=== PATIENT | female | born 1975 | race Caucasian/White ===

== ENCOUNTER → 2020-07-22 11:15 | Outpatient (CLI) | payer BC, SELFPAY ==
--- NOTE | ~2020-07-22 | US_ITS ---
EXAMINATION: US pelvic complete w TV EXAM DATE: 07/22/2020 11:47 INDICATION: N93.9 - Abnormal uterine and vaginal bleeding, unspecified. TECHNIQUE: Pelvic transabdominal and transvaginal sonogram was performed. There are multiple graysca le and Doppler images available for interpretation. Comparison is made to prior examination from 2012. FINDINGS: Uterus measures 11.4 x 5.7 x 8.0 cm, with a fibroid measuring 5 cm. Endometrium measuring up to 33 mm in thickness, abnormally thickened but otherwise expected trilaminar echogenicity. There is no free pelvic fluid. Right adnexa: The ovary measures 4.0 x 2.6 x 3.9 cm, with 2 cystic lesions measuring 2.6, 2.4 cm. Ova jayla vascular flow confirmed. Left adnexa: The ovary measures 1.4 x 1.6 x 2.4 cm and is morphologically normal. Ovarian vascular fl ow confirmed. IMPRESSION: 1. Abnormal thickened endometrium with expected trilaminar echogenicity. Could be hyperplasia. Endom etrial cancer not excludable. 2. Couple of right ovarian cystic lesions likely physiologic or hemorrhagic cyst. 3. Consider endometrial histologic correlation or 6 week follow-up pelvic sonogram for these 2 findi ngs. Reviewed, dictated and finalized at location B. 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 Abnormal thickened endometrium with expected trilaminar echogenicity. Could be hyperplasia. Endometrial cancer not excludable. 2. Couple of right ovarian cystic lesions likely physiologic or hemorrhagic cy st. 3. Consider endometrial histologic correlation or 6 week follow-up pelvic sono gram for these 2 findings.
== END ==
PROVIDERS: Visit Provider Obstetrics & Gynecology
DX: N93.9 Abnormal uterine and vaginal bleeding, unspecified (principal); N83.201 Unspecified ovarian cyst, right side
CPT/HCPCS: 76830; 76856

== ENCOUNTER → 2020-09-04 14:52 | Outpatient (CLI) | payer BC, SELFPAY ==
--- NOTE | ~2020-09-04 | MM_ITS ---
EXAMINATION: MM scrn shante implant BI w joselyn HISTORY: Screening mammogram TECHNIQUE: Craniocaudal and mediolateral oblique 3-D tomosynthesis images with implant displacement a nd synthetic 2-D images were generated. Craniocaudal and mediolateral oblique views of the breasts wi thout implant displacement were obtained using full field digital mammography. CAD analysis was submi tted and interpreted. COMPARISON: No prior mammogram is available for comparison at this institution. BREAST PARENCHYMAL COMPOSITION: The breasts are heterogeneously dense, which may obscure small masses . FINDINGS: Status post bilateral augmentation mammoplasty. There is no evidence of suspicious mass, ca lcification, or architectural distortion to suggest malignancy in either breast. There has been no alan spicious interval change. IMPRESSION: 1. No mammographic evidence of malignancy. 2. Recommend routine screening mammography in one year. BI-RADS Category 1: Negative Reviewed, dictated and finalized at location A. 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
== END ==
PROVIDERS: PCP Emergency Medicine; Visit Provider Obstetrics & Gynecology
DX: Z12.31 Encounter for screening mammogram for malignant neoplasm of breast (principal)
CPT/HCPCS: 77063; 77067

== ENCOUNTER → 2020-11-02 00:41 | Outpatient (CLI) | payer BC, SELFPAY ==
[2020-11-02 18:52] LABS: SARS-CoV-2 RNA PCR Negative
== END ==
PROVIDERS: PCP Emergency Medicine; Visit Provider Obstetrics & Gynecology
DX: Z01.812 Encounter for preprocedural laboratory examination (principal); Z20.822 Contact with and (suspected) exposure to COVID-19
CPT/HCPCS: C9803; U0003; U0005

== ENCOUNTER 2020-11-05 14:58 | Outpatient (CLI) | payer BC, SELFPAY ==
--- NOTE | ~2020-11-05 | US_ITS ---
EXAMINATION: US pelvic complete w TV EXAM DATE: 11/05/2020 15:40 INDICATION: N83.201 - Unspecified ovarian cyst, right side. TECHNIQUE: Pelvic transabdominal and transvaginal sonogram was performed. There are multiple graysca le and Doppler images available for interpretation. Comparison is made to prior examination from 06/26. FINDINGS: Uterus measures 10.6 x 5.2 x 6.5 cm, with focal region consistent with left anterior fibro id measuring 4 cm Endometrial stripe measures 11 mm, within normal limits. There is no free pelvic f luid. Right adnexa: The ovary measures 3.8 x 2.6 x 3.0 cm and is morphologically normal, contains the domin ant physiologic follicle measuring up to 2.3 cm. Ovarian vascular flow confirmed. Left adnexa: The ovary measures 3.2 x 2.0 x 2.9 cm and is morphologically normal. Ovarian vascular fl ow confirmed. IMPRESSION: 1. Normalization of both previously seen thickened endometrium and complex right ovarian cystic lesi on. 2. Fibroid. Reviewed, dictated and finalized at location A. IMPRESSION: 1. Normalization of both previously seen thickened endometrium and complex rig ht ovarian cystic lesion. 2. Fibroid.
== END 2020-11-05 14:59 | disposition home or self-care (01) ==
PROVIDERS: PCP Emergency Medicine; Visit Provider Obstetrics & Gynecology
DX: N83.201 Unspecified ovarian cyst, right side (principal); D25.9 Leiomyoma of uterus, unspecified
CPT/HCPCS: 76830; 76856

== ENCOUNTER 2020-11-06 01:52 | Day surgery (SDC) | payer BC, SELFPAY ==
[2020-10-21 13:43] VITALS: BMI 22.1
--- NOTE | 2020-11-06 04:50 | PM.IMHP ---
H&P: HPI History of Present Illness Date/Time: 11/06/20 04:50 Patient with a history of abnormal uterine bleeding with prolonged periods which started end of 2019. Evaluation consist of ultrasound which did not show fibroids. She had some ovarian cyst and follow up ultrasound was done on 11/05 which showed small cyst. Appear benign. She had a normal endometrial biopsy. Normal pap smear. She is not a candidate for combined hormonal regulation due to smoking history. She has been given option of IUD. Continual oral progesterone. Depo Provera and endometrial ablation. She has been counseled regarding risk/benefits of each. She desires endometrial ablation. She has a history of sterilization. She denies pelvic pain. Chief Complaint: Abnormal uterine bleeding. Review of Systems Review of Systems: All systems reviewed & are unremarkable except as noted in HPI and below Cardiovascular: Cardiovascular: Reports no additional cardiovascular complaints, Denies chest pain and Denies dyspnea Respiratory: Respiratory: Reports no additional respiratory complaints and Denies dyspnea Gastrointestinal: Gastrointestinal: Reports abdominal pain, Denies change in bowel habits, Denies diarrhea, Denies nausea and Denies vomiting Genitourinary: Genitourinary: Reports pelvic pain Musculoskeletal: Musculoskeletal: Reports back pain Integumentary/Breasts: Skin/Breast: Reports system reviewed and no additional complaints, except as docu Neurologic: Reports system reviewed and no additional complaints, except as documented PMFSH Past Medical History Medical History Depression History of vaginal delivery x 2 Surgical History Surgical History History of tubal ligation [place] teeth removed Family History Family History Mother Family history of malignant neoplasm of breast in first degree relative Other Family history of malignant neoplasm of male breast Social History Social History Years smoked: 1 Smoking status: Light tobacco smoker Tobacco type: cigarettes Second hand tobacco smoke exposure: No Smoking end date: 07/26/01 Alcohol intake: never Living arrangements: with family Spiritual care concerns: No Meds Home Medications and Allergies Home Medications Medication Instructions Recorded Confirmed Type sertraline 50 mg tablet See Rx Instructions .ROUTE 07/22/20 11/06/20 Rx .COMPLEX #90 tablet cholecalciferol (vitamin D3) 50 See Rx Instructions .ROUTE 10/15/20 11/06/20 Rx mcg (2,000 unit) capsule .COMPLEX #90 cap Allergies Allergy/AdvReac Type Severity Reaction Status Date / Time latex Allergy Mild Rash Verified 11/06/20 08:52 Sulfa (Sulfonamide Allergy Mild rash Verified 11/06/20 08:52 Antibiotics) sulfanilamide Allergy Mild Rash Verified 11/06/20 08:52 Exam Const: Orientation/consciousness: oriented to person and oriented to place HENMT: Head: normal to inspection Eyes: General: appearance normal, both eyes and all related structures Resp: Effort & Inspection: normal respiratory effort Auscultation: clear to auscultation bilaterally Cardio: Rate: regular rate Rhythm: regular rhythm GI: Inspection: normal to inspection GI Palp: No Rebound tenderness present : External Female Exam: normal external appearance Speculum Exam - Vagina: normal appearance of the vagina Speculum Exam - Cervix: normal appearance of the cervix Bimanual exam- vagina & uterus: normal bimanual exam, uterine size normal and non-tender Bimanual Exam- Adnexa, other: no masses and No adnexal tenderness Neuro: General: oriented to person and oriented to place Cognition (Neuro): normal cognition Extrem: General: normal to inspection Psych: Appearance: grossly normal and we
--- NOTE | 2020-11-06 09:02 | P.PNAN_ITS ---
Anes - Initial Pre Proc Eval Procedure: Operation Date: 11/06/20 10:30 Proposed Procedures p Hysteroscopy, Dilation and Curettage with Leslee Endometrial Ablation, Possible Myosure - Lazaro Petersen MD Date/Time: 11/06/20 09:02 Surgeon: Lazaro Petersen MD Pre Op Diagnosis: menorrhaghia Patient Data Age: 45 Gender: F Height: 5 ft 9 in Weight: 68.1 kg Allergies Allergy/AdvReac Type Severity Reaction Status Date / Time latex Allergy Mild Rash Verified 11/06/20 08:52 Sulfa (Sulfonamide Allergy Mild rash Verified 11/06/20 08:52 Antibiotics) sulfanilamide Allergy Mild Rash Verified 11/06/20 08:52 Home Medications Medication Instructions Recorded Confirmed Type sertraline 50 mg tablet See Rx Instructions .ROUTE 07/22/20 11/06/20 Rx .COMPLEX #90 tablet cholecalciferol (vitamin D3) 50 See Rx Instructions .ROUTE 10/15/20 11/06/20 Rx mcg (2,000 unit) capsule .COMPLEX #90 cap Patient hx anesthesia problems: post op nausea/vomiting Family hx anesthesia problems: none PMFSH Past Medical History Medical History Depression History of vaginal delivery x 2 Surgical History Surgical History History of tubal ligation [place] teeth removed Family History Family History Mother Family history of malignant neoplasm of breast in first degree relative Other Family history of malignant neoplasm of male breast Social History Social History Years smoked: 1 Smoking status: Light tobacco smoker Tobacco type: cigarettes Second hand tobacco smoke exposure: No Smoking end date: 07/26/01 Alcohol intake: never Living arrangements: with family Spiritual care concerns: No Anes - Eval Final PreProcedure Day of Procedure 11/06/20 09:02 Patient weight: normal Heart: regular rate and rhythm Lungs: clear to auscultation Airway: Mallampati scale class II Neurological: alert and oriented Last oral intake: >/= 8 hours ASA classification: II Emergent: no Anesthetic plan: proceed Anesthesia type and monitoring: general GIVS and standard monitoring Informed Consent: The patient's anesthetic plan and its attendant risks and benefits were discussed with the patient/family/POA. Questions were solicited and answers provided to the satisfaction of the patient/family/POA.
[2020-11-06] MEDS: LACTATED RINGERS 1,000 ML 30 ML IV CONT (09:09)
[2020-11-06] MEDS: SCOPOLAMINE 1.5 MG PATCH TRANSDERM (09:10)
[2020-11-06] MEDS: ACETAMINOPHEN 500 MG TABLET 1000 MG PO (09:10)
[2020-11-06 09:12] VITALS: BP 157/67; PULSE 83; RESP 16; TEMP 36.4; O2SAT 99
--- NOTE | 2020-11-06 10:08 | SUR.PREOP ---
Discussed 30 minute delay with patient and family.
--- NOTE | 2020-11-06 11:17 | SUR.PREOP ---
Discussed continued delay. No needs at present.
--- NOTE | 2020-11-06 11:25 | WPDHPUPDATE1 ---
History and Physical Update Update Date/Time: 11/06/20 11:25 History and Physical has been reviewed, including an updated exam of the patient. There are NO changes in the patient's condition. Risks, benefits, and alternatives have been discussed and questions answered. Patient agrees to proceed with procedure.
[2020-11-06] MEDS: ceFAZolin 2 GM/D5W 50 ML 2 GM/50 ML BAG IVPB (11:48)
--- NOTE | 2020-11-06 12:14 | PM.OP ---
Procedure Note - Brief Procedure Note - Brief Date of procedure: 11/06/20 Pre-op diagnosis: menorrhaghia Post-op diagnosis: same Procedure performed: Diagnostic hysteroscopy and Leslee endometrial ablation. Anesthesia: MAC and local Surgeon: Lazaro Petersen MD Estimated blood loss (mL): 5 Drains: No Packing: No Pathology: none sent Complications: No immediate complications Condition: stable Disposition: same day Findings: Uterus sound to 10 cm, cervical length 4.5cm, uterine cavity length 5.5 cm, normal uterine cavity.
[2020-11-06 12:20] VITALS: BP 102/42; PULSE 50; RESP 12; O2SAT 97
[2020-11-06 12:50] VITALS: BP 102/73; PULSE 41; RESP 12
--- NOTE | 2020-11-07 07:33 | PM.PROC ---
Procedure Note - Detailed Pre-op diagnosis: menorrhaghia Abnormal uterine bleeding with menorrhagia Post-op diagnosis: same Procedure performed: Hysteroscopic endometrial ablation with Leslee Description of procedure: After informed consent was obtained patient was taken to the operating room and adequate general endotracheal anesthesia was administered Attention was turned to the vagina. Speculum was inserted. Single-tooth tenaculum placed on the anterior lip of the cervix. The uterus was sounded to 10cm. The cervix was dilated to an 8 Izaguirre dilator. The hysteroscope was inserted into the cavity. The findings were a normal uterine cavity. The hysteroscope was removed. The Leslee ablation instrument was inserted into the cavity. Cavity assessment was performed and noted to be intact. The ablation was enabled. After 120 seconds the Leslee stopped. The ablation instrument was removed. The hysteroscope was inserted and there was noted to be good eschar with the cavity. The hysteroscope was removed the single-tooth tenaculum was removed hemostasis was noted at the tenaculum site. Sponge count correct. The patient was taken to recovery room in stable condition. Anesthesia: GETA Surgeon: Lazaro Petersen MD Date of procedure 11/06/20 Estimated blood loss (mL): 5 Drains: No Packing: No Pathology: none sent Complications: No immediate complications Condition: stable Disposition: PACU Findings: Uterus sound to 10cm, cervical length 4.5 cm, uterine length 5.5cm, uterine cavity normal, no lesions.
== END 2020-11-06 13:15 | disposition home or self-care (01) ==
PROVIDERS: PCP Emergency Medicine; Visit Provider Obstetrics & Gynecology
PROC: 0U5B8ZZ Destruction of Endometrium, Via Natural or Artificial Opening Endoscopic (ICD-10-PCS; CPT 58563; principal; 2020-11-06 10:30)
DX: N92.0 Excessive and frequent menstruation with regular cycle (principal); F32.9 Major depressive disorder, single episode, unspecified; F17.210 Nicotine dependence, cigarettes, uncomplicated
CPT/HCPCS: 58563; A9270; J0690; J2250; J2704; J3010; J7030; J7120

== ENCOUNTER → 2021-10-09 16:23 | Outpatient (CLI) | payer BC, SELFPAY ==
--- NOTE | ~2021-10-09 | MM_ITS ---
EXAMINATION: MM scrn shante implant BI w joselyn HISTORY: Screening mammogram, family history of breast cancer in her mother. TECHNIQUE: Craniocaudal and mediolateral oblique 3-D tomosynthesis images with implant displacement a nd synthetic 2-D images were generated. Craniocaudal and mediolateral oblique views of the breasts wi thout implant displacement were obtained using full field digital mammography. CAD analysis was submi tted and interpreted. COMPARISON: 09/04/2020 BREAST PARENCHYMAL COMPOSITION: The breasts are heterogeneously dense, which may obscure small masses . FINDINGS: There is no evidence of suspicious mass, calcification, or architectural distortion to sugg est malignancy in either breast. There has been no suspicious interval change. IMPRESSION: 1. No mammographic evidence of malignancy. 2. Recommend routine screening mammography in one year. BI-RADS Category 1: Negative Reviewed, dictated and finalized at location A.
== END ==
PROVIDERS: Visit Provider Obstetrics & Gynecology
DX: Z12.31 Encounter for screening mammogram for malignant neoplasm of breast (principal)
CPT/HCPCS: 77063; 77067

== ENCOUNTER 2022-09-22 01:18 | Day surgery (SDC) | payer BC, SELFPAY ==
[2022-09-07 10:39] VITALS: BMI 22.8
--- NOTE | 2022-09-21 09:29 | WPDANESEPPF ---
Anes - Initial Pre Proc Eval Procedure: Operation Date: 09/22/22 08:00 Proposed Procedures p Screening Colonoscopy - Boby Christine MD Date/Time: 09/21/22 09:29 Surgeon: Boby Christine MD Pre Op Diagnosis: neoplasm screening Patient Data Age: 47 Gender: F Height: 1.75 m Weight: 70 kg Allergies Allergy/AdvReac Type Severity Reaction Status Date / Time latex Allergy Mild Rash Verified 09/22/22 06:49 Sulfa (Sulfonamide Allergy Mild rash Verified 09/22/22 06:49 Antibiotics) sulfanilamide Allergy Mild Rash Verified 09/22/22 06:49 Home Medications Medication Instructions Recorded Confirmed Type sertraline 50 mg tablet See Rx Instructions .Route 07/22/20 09/22/22 Rx .COMPLEX #90 tabs cholecalciferol (vitamin D3) 50 See Rx Instructions .Route 10/15/20 09/22/22 Rx mcg (2,000 unit) capsule .COMPLEX #90 caps albuterol sulfate 90 mcg/actuation 2 puff inhalation Q4-6H PRN SOB 09/07/22 09/22/22 History aerosol inhaler Patient hx anesthesia problems: none Family hx anesthesia problems: none Results Review: All pre-operative results and documents have been reviewed as part of the pre-operative evaluation. [facility] Past Medical History Medical History (Updated 09/21/22 @ 09:29 by Arian Villareal DO) Anxiety Asthma Depression History of vaginal delivery x 2 Surgical History Surgical History History of tubal ligation Status post hysteroscopic ablation of endometrium 11/06/20 [place] teeth removed Family History Family History Mother Family history of malignant neoplasm of breast in first degree relative Other Family history of malignant neoplasm of male breast Social History Social History Smoking packs per day: 0.5 Smoking cigarettes per day: 10.0 Years smoked: 8 Smoking pack-years: 4.00 Smoking status: Current every day smoker Tobacco type: cigarettes Second hand tobacco smoke exposure: No Smoking end date: 07/26/01 Alcohol intake: never Substance use: never Substance use type: does not use Lack of Transportation: No Lack of Food: Never True Current Housing: I Have Housing Concerned About Future Housing: No Difficulty Paying Gas/Electric Bills: No Difficulty Paying for Meds: No Currently Unemployed: No Education: High School Diploma/GED Difficulty w/ Childcare or Family Care: No Living arrangements: with family Spiritual care concerns: No Anes - Eval Final PreProcedure Day of Procedure 09/21/22 09:29 Patient weight: normal Heart: regular rate and rhythm Lungs: clear to auscultation and normal air movement Airway: Mallampati scale class II Neurological: alert and oriented Last oral intake: >/= 8 hours ASA classification: II Emergent: no Anesthetic plan: proceed Anesthesia type and monitoring: general GIVS and standard monitoring Results Review: All pre-operative results and documents have been reviewed as part of the pre-operative evaluation. Informed Consent: The patient's anesthetic plan and its attendant risks and benefits were discussed with the patient/family/POA. Questions were solicited and answers provided to the satisfaction of the patient/family/POA.
[2022-09-22 06:42] VITALS: BP 104/68; PULSE 57; RESP 16; TEMP 36.4; O2SAT 97; BMI 22.5
[2022-09-22] MEDS: LACTATED RINGERS 1,000 ML 150 ML IV CONT (07:00)
--- NOTE | 2022-09-22 07:53 | PM.HPGS ---
History of Present Illness History of Present Illness Consent: Risks, benefits, and alternatives have been discussed and questions answered. Patient agrees to proceed with procedure. Chief complaint: neoplasm screening Narrative: Yue Bedolla is a 47 year old female here for first screening colonoscopy Review of Systems Constitutional: Constitutional: Denies headache(s) and Denies weakness Eyes: Eyes: Denies blurry vision ENT: Reports Normal hearing present, Denies headache(s) and Denies neck pain Cardiovascular: Cardiovascular: Denies chest pain and Denies dyspnea Respiratory: Respiratory: Denies dyspnea Gastrointestinal: Gastrointestinal: Reports no additional gastrointestinal complaints Genitourinary: Genitourinary: Denies dysuria Musculoskeletal: Musculoskeletal: Denies neck pain Integumentary/Breasts: Skin/Breast: Denies dry skin Neurologic: Reports Normal hearing present, Denies headache(s) and Denies weakness Psychiatric: Psychiatric: Denies anxiety Endocrine: Endocrine: Denies change in body appearance Hematologic/Lymphatic: Hematologic/Lymphatic: Denies easy bleeding Allergic/Immunologic: Allergic/Immunologic: Denies urticaria PMF Past Medical History Medical History (Updated 09/22/22 @ 07:53 by Boby Christine MD) Anxiety Asthma Colon cancer screening Depression History of vaginal delivery x 2 Surgical History Surgical History History of tubal ligation Status post hysteroscopic ablation of endometrium 11/06/20 [place] teeth removed Family History Family History Mother Family history of malignant neoplasm of breast in first degree relative Other Family history of malignant neoplasm of male breast Social History Social History Smoking packs per day: 0.5 Smoking cigarettes per day: 10.0 Years smoked: 8 Smoking pack-years: 4.00 Smoking status: Current every day smoker Tobacco type: cigarettes Second hand tobacco smoke exposure: No Smoking end date: 07/26/01 Alcohol intake: never Substance use: never Substance use type: does not use Lack of Transportation: No Lack of Food: Never True Current Housing: I Have Housing Concerned About Future Housing: No Difficulty Paying Gas/Electric Bills: No Difficulty Paying for Meds: No Currently Unemployed: No Education: High School Diploma/GED Difficulty w/ Childcare or Family Care: No Living arrangements: with family Spiritual care concerns: No Meds Home Medications and Allergies Home Medications Medication Instructions Recorded Confirmed Type sertraline 50 mg tablet See Rx Instructions .Route 07/22/20 09/22/22 Rx .COMPLEX #90 tabs cholecalciferol (vitamin D3) 50 See Rx Instructions .Route 10/15/20 09/22/22 Rx mcg (2,000 unit) capsule .COMPLEX #90 caps albuterol sulfate 90 mcg/actuation 2 puff inhalation Q4-6H PRN SOB 09/07/22 09/22/22 History aerosol inhaler Allergies Allergy/AdvReac Type Severity Reaction Status Date / Time latex Allergy Mild Rash Verified 09/22/22 06:49 Sulfa (Sulfonamide Allergy Mild rash Verified 09/22/22 06:49 Antibiotics) sulfanilamide Allergy Mild Rash Verified 09/22/22 06:49 Vital Signs Vital Signs - 24 hr 09/22/22 06:42 Temperature 97.5 F L Pulse Rate 57 L Respiratory Rate 16 Blood Pressure 104/68 Pulse Oximetry 97 Oxygen Delivery Room Air Exam Const: General: comfortable and no acute distress HENMT: Face/Nose/Sinus: Normal nares present Eyes: General: appearance normal, both eyes and all related structures Neck: Neck: no JVD Resp: Auscultation: clear to auscultation bilaterally Cardio: Rate: regular rate Rhythm: regular rhythm GI: Inspection: non-distended GI Palp: Yes Soft to palpation Skin: General skin exa
[2022-09-22 08:18] VITALS: BP 99/64; PULSE 53; RESP 17; O2SAT 100
[2022-09-22 08:28] VITALS: BP 102/67; PULSE 51; RESP 17; O2SAT 100
[2022-09-22 08:38] VITALS: BP 109/67; PULSE 49; RESP 13; O2SAT 100
== END 2022-09-22 08:44 | disposition home or self-care (01) ==
PROVIDERS: Visit Provider Internal Medicine Gastroenterology
PROC: 0DJD8ZZ Inspection of Lower Intestinal Tract, Via Natural or Artificial Opening Endoscopic (ICD-10-PCS; CPT 45378; principal; 2022-09-22 08:00)
DX: Z12.11 Encounter for screening for malignant neoplasm of colon (principal); J45.909 Unspecified asthma, uncomplicated; F41.9 Anxiety disorder, unspecified; F32.A Depression, unspecified; Z79.51 Long term (current) use of inhaled steroids; F17.210 Nicotine dependence, cigarettes, uncomplicated
CPT/HCPCS: 45378; J2704; J7120

== ENCOUNTER 2025-04-03 10:31 | Outpatient (CLI) | payer BC, SELFPAY ==
--- NOTE | ~2025-04-03 | DEXA_ITS ---
Bone Density Report Name: MOHAN IVY Age: 49 Sex: Female Ethnicity: White Date of : 1975 Indication: postmenopausal; screening for osteoporosis; height loss; asthma or emphysema; Referring Provider: TINO BRUNSON Study: Bone densitometry was performed. Exam Date: April 03, 2025 Accession number: [id number] Bone Density: Region BMD T-score Z-score Classification AP Spine(L1, L2, L3) 1.048 0.3 1.0 Normal Femoral Neck (Left) 0.795 -0.5 0.3 Normal Total Hip (Left) 0.922 -0.2 0.3 Normal Femoral Neck (Right) 0.818 -0.3 0.5 Normal Total Hip (Right) 0.951 0.1 0.6 Normal Total Hip Mean 0.936 -0.1 0.5 Normal World Health Organization criteria for BMD impression classify patients as: Normal (T-score at or above -1.0), Osteopenia (T-score between -1.0 and -2.5), or Osteoporosis (T-score at or below -2.5). 10-year Fracture Risk: FRAX not reported because: All T-scores for Spine Total, Hip Total, Femoral Neck at or above -1.0 Clinical Information Provided by Patient: Smokes Has used the following medications: Vitamin D Has the following medical conditions: Asthma or Emphysema Patient maximum height was 70 No regular weight bearing exercise Drinks caffeinated beverages Onset of menses at age 13 Number of children 2 Impression: The patient has normal bone mass. The patient has risk factors, including: smoking. Discussion: BONE DENSITY IS ABOVE THE MINIMUM DESIRABLE LEVEL AT ALL SKELETAL SITES TESTED. This patient?s bone mineral density is above the minimum desirable level (T-score -1.0 or better) at all sites measured. The patient should follow a healthful lifestyle (good nutrition with adequate calcium and vitamin D, and appropriate weight-bearing exercise). Follow-Up: Consider repeating this study in 5 years or sooner if there is some new clinical indication. Reported by: JESUS on 04/03/2025 10:58:00 AM. Reviewed, dictated and finalized at location A.
--- NOTE | ~2025-04-03 | MM_ITS ---
EXAMINATION: MM scrn shante implant BI w joselyn INDICATION: Asymptomatic, referred for screening mammogram COMPARISON: 10/09/2021 and 09/04/2020 TECHNIQUE: Digital Breast Tomosynthesis CC, MLO, and implant displaced CC and MLO views of Both breasts were obtained with computer-aided detection to assist in interpretation of the study. FINDINGS: The breasts are heterogeneously dense, which may obscure small masses. Bilateral breast Retroglandular Saline implants in place appears intact. No focal dominant mass, architectural distortion, or suspicious microcalcifications are identified. There are no features to suggest malignancy. IMPRESSION: 1. No evidence of malignancy in the breasts. 2. Both breasts Retroglandular Saline implants appears intact. Recommend continued screening mammography BI-RADS 1, NEGATIVE Reviewed, dictated and finalized at location B.
== END 2025-04-03 10:32 | disposition home or self-care (01) ==
LOC: MICIMG 10:33
PROVIDERS: Visit Provider Obstetrics & Gynecology
DX: Z12.31 Encounter for screening mammogram for malignant neoplasm of breast (principal); R29.890 Loss of height; Z91.89 Other specified personal risk factors, not elsewhere classified; Z78.0 Asymptomatic menopausal state
CPT/HCPCS: 77063; 77067; 77080